=== PATIENT | male | born 1980 | race African-American/Black ===

== ENCOUNTER 2018-03-28 21:50 | Emergency (ER) | payer MEDICAID ==
[~2018-03-28] VITALS: Ht 175.3 cm; Wt 74.0 kg
[2018-03-28] MEDS ORDERED: TETANUS, DIPHTHERIA, PERTUSSIS VAC/PF 0.5ML (>7YR OLD) IM ONE (23:15)
[2018-03-28] MEDS ORDERED: BACITRACIN ZINC OINT UDPKT TOP ONE (23:15)
[2018-03-28] MEDS ORDERED: LIDOCAINE HCL 1% 20ML VIAL (Pyxis) INJ INFIL ONE (23:15)
[2018-03-28] MEDS ORDERED: LIDOCAINE HCL/PF 1% 10 MG/ML 5ML VIAL IJ NR (23:45)
[2018-03-29 03:33] VITALS: BP 117/65
== END 2018-03-29 03:35 | disposition home or self-care (01) ==
LOC: ER 21:50
DX: S01.81XA Laceration without foreign body of other part of head, initial encounter (principal); M79.602 Pain in left arm; F17.200 Nicotine dependence, unspecified, uncomplicated; Y08.89XA Assault by other specified means, initial encounter; Y93.89 Activity, other specified; Y92.410 Unspecified street and highway as the place of occurrence of the external cause; Y99.8 Other external cause status
CPT/HCPCS: 12013; 73060; 73090; 90471; 90715; 99284; A4217; J3490; Z7610

== ENCOUNTER 2018-10-20 14:45 | Emergency (ER) | payer MEDICAID, OTHER ==
[~2018-10-20] VITALS: Ht 175.3 cm; Wt 70.0 kg
[2018-10-20] MEDS ORDERED: SODIUM CHLORIDE 0.9% 1,000 ML IV ONE ×2 (18:30→22:45)
[2018-10-20] MEDS ORDERED: KETOROLAC 15MG/ML VIAL IV ONE (18:30)
[2018-10-20] MEDS ORDERED: CEFTRIAXONE SODIUM 250 MG/VIAL IM ONE (18:45)
[2018-10-20] MEDS ORDERED: STERILE WATER FOR INJECTION 10ML VIAL ONE (19:01)
[2018-10-20 19:39] LABS: BASOPHILS % 0.3 % (0.0-2.0); EOSINOPHILS % 0.6 % (0.0-5.0); HEMATOCRIT. 46.9 % (42.0-52.0); HEMOGLOBIN. 16.2 g/dL (14.0-18.0); LYMPHOCYTES % 12.6 % (20.0-50.0); MEAN CORPUSCULAR HEMOGLOBIN 30.9 pg (28.0-32.0); MEAN CORPUSCULAR VOLUME 89.7 fL (80.0-94.0); MEAN PLATELET VOLUME 7.2 fl (7.4-10.4); MONOCYTES % 7.5 % (2.0-8.0); PLATELET 261 x1000/uL (130-400); RED BLOOD CELL COUNT 5.23 mill/uL (4.7-6.1); RED CELL DISTRIBUTION WIDTH 12.6 % (11.6-14.6)
[2018-10-20 19:48] LABS: CHLORIDE 101 mEq/L (98-107)
[2018-10-20 19:52] LABS: ETHANOL BLOOD < 10 mg/dL
[2018-10-20 23:31] LABS: CLARITY URINE CLEAR (CLEAR); COLOR URINE DARK YELLOW (YELLOW); KETONES URINE TRACE (NEGATIVE); LEUKOCYTE ESTERASE URINE 2+ (NEGATIVE); NITRITE URINE NEGATIVE (NEGATIVE); OCCULT BLOOD URINE NEGATIVE (NEGATIVE); PH URINE 5.5 (4.5-8.0); PROTEIN URINE TRACE (NEGATIVE); SPECIFIC GRAVITY URINE 1.032 (1.005-1.030)
[2018-10-21 00:52] VITALS: BP 125/87
[2018-10-21 01:17] LABS: *AMPHETAMINES SCREEN URINE PRESUMTIVE POSITIVE (NEGATIVE); *BARBITURATES SCREEN URINE NEGATIVE (NEGATIVE); *BENZODIAZEPINES SCREEN URINE NEGATIVE (NEGATIVE); *COCAINE SCREEN URINE NEGATIVE (NEGATIVE)
[2018-10-21 01:18] LABS: CANNABINOID URINE SCREEN NEGATIVE (NEGATIVE); METHADONE URINE SCREEN NEGATIVE (NEGATIVE); OPIATES URINE SCREEN NEGATIVE (NEGATIVE); PHENCYCLIDINE URINE SCREEN NEGATIVE (NEGATIVE)
== END 2018-10-21 00:55 | disposition home or self-care (01) ==
LOC: ER 14:45
DX: A64 Unspecified sexually transmitted disease (principal); L73.9 Follicular disorder, unspecified; F15.10 Other stimulant abuse, uncomplicated; L29.9 Pruritus, unspecified; F19.10 Other psychoactive substance abuse, uncomplicated; M25.552 Pain in left hip; F17.200 Nicotine dependence, unspecified, uncomplicated
CPT/HCPCS: 36415; 71045; 73502; 80053; 80305; 81003; 85025; 96372; 96374; 99284; A4216; G0482; J0696; J1885; J7030

== ENCOUNTER 2019-12-19 12:07 | Emergency (ER) | payer SELFPAY ==
[~2019-12-19] VITALS: Ht 170.2 cm; Wt 73.0 kg
[2019-12-19 14:06] LABS: BASOPHILS % 1.1 % (0.0-2.0); EOSINOPHILS % 1.9 % (0.0-5.0); HEMATOCRIT. 42.7 % (42.0-52.0); HEMOGLOBIN. 14.5 g/dL (14.0-18.0); LYMPHOCYTES % 26.3 % (20.0-50.0); MEAN CORPUSCULAR HEMOGLOBIN 31.1 pg (28.0-32.0); MEAN CORPUSCULAR VOLUME 91.3 fL (80.0-94.0); MEAN PLATELET VOLUME 7.5 fl (7.4-10.4); MONOCYTES % 7.9 % (2.0-8.0); NEUTROPHILS % 62.8 % (40.0-76.0); PLATELET 217 x1000/uL (130-400); RED BLOOD CELL COUNT 4.68 mill/uL (4.7-6.1); RED CELL DISTRIBUTION WIDTH 13.3 % (11.6-14.6)
[2019-12-19 14:15] LABS: CHLORIDE 110 mEq/L (98-107)
[2019-12-19 14:19] LABS: ETHANOL BLOOD < 10 mg/dL
[2019-12-19 14:20] LABS: *AMPHETAMINES SCREEN URINE PRESUMTIVE POSITIVE (NEGATIVE); *BARBITURATES SCREEN URINE NEGATIVE (NEGATIVE); *BENZODIAZEPINES SCREEN URINE PRESUMTIVE POSITIVE (NEGATIVE); *COCAINE SCREEN URINE NEGATIVE (NEGATIVE)
[2019-12-19 14:21] LABS: CANNABINOID URINE SCREEN NEGATIVE (NEGATIVE); METHADONE URINE SCREEN NEGATIVE (NEGATIVE); OPIATES URINE SCREEN NEGATIVE (NEGATIVE); PHENCYCLIDINE URINE SCREEN NEGATIVE (NEGATIVE)
[2019-12-19] MEDS ORDERED: FUROSEMIDE 40MG/4ML VIAL IV ONE (15:15)
[2019-12-19] MEDS ORDERED: NITROGLYCERIN 0.4MG TABLET SL SL PRN (15:15)
[2019-12-19] MEDS ORDERED: ASPIRIN 81MG TABLET PO ONE (15:15)
[2019-12-19 16:47] VITALS: BP 125/88
== END 2019-12-19 16:49 | disposition home or self-care (01) ==
LOC: ER 12:07
DX: R07.9 Chest pain, unspecified (principal); I20.0 Unstable angina; I11.0 Hypertensive heart disease with heart failure; I50.9 Heart failure, unspecified; F32.9 Major depressive disorder, single episode, unspecified
CPT/HCPCS: 36415; 71045; 80053; 80305; 80320; 83880; 84484; 85025; 93005; 96374; 99285; J1940; Z7610; G0480

== ENCOUNTER 2021-08-14 10:23 | Inpatient (IN) | payer MEDICAID ==
[~2021-08-14] VITALS: Ht 175.3 cm; Wt 73.1 kg
[2021-08-14 11:01] LABS: BASOPHILS % 1.2 % (0.0-2.0); HEMATOCRIT. 41.7 % (42.0-52.0); HEMOGLOBIN. 14.3 g/dL (14.0-18.0); LYMPHOCYTES % 23.7 % (20.0-50.0); MEAN CORPUSCULAR HEMOGLOBIN 30.7 pg (28.0-32.0); MEAN CORPUSCULAR VOLUME 89.9 fL (80.0-94.0); MEAN PLATELET VOLUME 7.4 fl (7.4-10.4); MONOCYTES % 5.8 % (2.0-8.0); NEUTROPHILS % 67.3 % (40.0-76.0); PLATELET 236 x1000/uL (130-400); RED BLOOD CELL COUNT 4.64 mill/uL (4.7-6.1); RED CELL DISTRIBUTION WIDTH 15.8 % (11.6-14.6)
[2021-08-14 11:09] LABS: CHLORIDE 104 mEq/L (98-107)
[2021-08-14] MEDS ORDERED: IOHEXOL-350 100 ML BOTTLE ONE (12:42)
[2021-08-14 18:49] VITALS: BP 146/100
[2021-08-14 20:00] VITALS: BP 133/95
[2021-08-14] MEDS ORDERED: RIVAROXABAN 20 MG TABLET PO SCH (20:00)
[2021-08-14] MEDS: FUROSEMIDE 40MG/4ML VIAL IVP SCH (20:58)
[2021-08-14] MEDS: CARVEDILOL 3.125 MG TABLET PO SCH (20:59)
[2021-08-14] MEDS ORDERED: POTA25TA8 PO (23:57)
[2021-08-14] MEDS ORDERED: FURO-151 PO (23:57)
[2021-08-14] MEDS ORDERED: RIVA20TA PO (23:57)
[2021-08-14] MEDS ORDERED: LOSA25TA26 PO (23:57)
[2021-08-15] VITALS: BP 113/72
[2021-08-15 04:00] VITALS: BP 112/88
[2021-08-15 08:00] VITALS: BP 108/84
[2021-08-15] MEDS ORDERED: ONDANSETRON HCL 4MG/2ML INJ IV PRN (09:00)
[2021-08-15] MEDS ORDERED: ACETAMINOPHEN 325MG TABLET PO PRN (09:00)
[2021-08-15] MEDS: LOSARTAN POTASSIUM 50 MG TABLET PO SCH (09:50)
[2021-08-15] MEDS: FUROSEMIDE 40MG/4ML VIAL IVP SCH ×2 (09:50→21:33)
[2021-08-15] MEDS: CARVEDILOL 3.125 MG TABLET PO SCH ×2 (09:50→21:34)
[2021-08-15 12:02] VITALS: BP 123/90
[2021-08-15] MEDS ORDERED: CLONIDINE 0.1MG TABLET PO PRN (12:30)
[2021-08-15 16:00] VITALS: BP 116/84
[2021-08-15] MEDS: ENOXAPARIN 80MG/0.8ML SYR SUBCUT SCH (18:24)
[2021-08-15 20:00] VITALS: BP 116/85
[2021-08-15 20:07] LABS: *AMPHETAMINES SCREEN URINE PRESUMTIVE POSITIVE (NEGATIVE); *BARBITURATES SCREEN URINE NEGATIVE (NEGATIVE); *BENZODIAZEPINES SCREEN URINE NEGATIVE (NEGATIVE); *COCAINE SCREEN URINE NEGATIVE (NEGATIVE); METHADONE URINE SCREEN NEGATIVE (NEGATIVE)
[2021-08-15 20:08] LABS: CANNABINOID URINE SCREEN NEGATIVE (NEGATIVE); OPIATES URINE SCREEN NEGATIVE (NEGATIVE); PHENCYCLIDINE URINE SCREEN NEGATIVE (NEGATIVE)
[2021-08-16] VITALS: BP 105/70
[2021-08-16 04:00] VITALS: BP 116/83
[2021-08-16] MEDS: ENOXAPARIN 80MG/0.8ML SYR SUBCUT SCH ×2 (05:27→17:28)
[2021-08-16 06:03] LABS: BASOPHILS % 0.7 % (0.0-2.0); EOSINOPHILS % 1.7 % (0.0-5.0); HEMATOCRIT. 42.7 % (42.0-52.0); HEMOGLOBIN. 14.1 g/dL (14.0-18.0); LYMPHOCYTES % 26.9 % (20.0-50.0); MEAN CORPUSCULAR HEMOGLOBIN 29.6 pg (28.0-32.0); MEAN PLATELET VOLUME 8.2 fl (7.4-10.4); NEUTROPHILS % 63.7 % (40.0-76.0); PLATELET 232 x1000/uL (130-400); RED BLOOD CELL COUNT 4.75 mill/uL (4.7-6.1); RED CELL DISTRIBUTION WIDTH 15.9 % (11.6-14.6)
[2021-08-16 06:27] LABS: CHLORIDE 103 mEq/L (98-107)
[2021-08-16 06:34] LABS: CREATINE KINASE MB FRACTION 1.8 ng/mL (0.5-3.6); LDL CHOLESTEROL 55 mg/dL (5-100)
[2021-08-16 06:35] LABS: CREATINE KINASE 98 IU/L (39-308); HDL CHOLESTEROL 27 mg/dL (40-59)
[2021-08-16 08:00] VITALS: BP 126/90
[2021-08-16] MEDS: CARVEDILOL 3.125 MG TABLET PO SCH ×2 (09:59→21:30)
[2021-08-16] MEDS: FUROSEMIDE 40MG/4ML VIAL IVP SCH ×2 (09:59→21:30)
[2021-08-16] MEDS: LOSARTAN POTASSIUM 50 MG TABLET PO SCH (09:59)
[2021-08-16 12:00] VITALS: BP 110/75
[2021-08-16 16:00] VITALS: BP 105/81
[2021-08-16 20:00] VITALS: BP 120/77
[2021-08-17 00:01] VITALS: BP 103/74
[2021-08-17 04:00] VITALS: BP 103/79
[2021-08-17] MEDS: ENOXAPARIN 80MG/0.8ML SYR SUBCUT SCH ×2 (04:31→16:58)
[2021-08-17 06:07] LABS: INR 1.3
[2021-08-17 06:11] LABS: BASOPHILS % 0.9 % (0.0-2.0); EOSINOPHILS % 2.3 % (0.0-5.0); HEMATOCRIT. 41.1 % (42.0-52.0); HEMOGLOBIN. 13.6 g/dL (14.0-18.0); LYMPHOCYTES % 29.6 % (20.0-50.0); MEAN CORPUSCULAR HEMOGLOBIN 29.4 pg (28.0-32.0); MEAN PLATELET VOLUME 8.2 fl (7.4-10.4); MONOCYTES % 6.4 % (2.0-8.0); NEUTROPHILS % 60.8 % (40.0-76.0); PLATELET 234 x1000/uL (130-400); RED BLOOD CELL COUNT 4.62 mill/uL (4.7-6.1); RED CELL DISTRIBUTION WIDTH 15.5 % (11.6-14.6)
[2021-08-17 08:00] VITALS: BP 125/88
[2021-08-17] MEDS: LOSARTAN POTASSIUM 50 MG TABLET PO SCH (08:53)
[2021-08-17] MEDS: FUROSEMIDE 40MG/4ML VIAL IVP SCH ×2 (08:53→21:16)
[2021-08-17] MEDS: CARVEDILOL 3.125 MG TABLET PO SCH ×2 (08:53→21:17)
[2021-08-17 09:24] LABS: CHLORIDE 104 mEq/L (98-107)
[2021-08-17 12:00] VITALS: BP 113/80
[2021-08-17] MEDS: IPRATROPIUM BROMIDE (0.02%) 0.5MG/2.5ML NEB HHN PRN ×2 (12:28→22:40)
[2021-08-17] MEDS ORDERED: KETOROLAC 15MG/ML VIAL IV PRN (13:15)
[2021-08-17] MEDS: BENZONATATE 100MG CAPSULE PO PRN (13:21)
[2021-08-17] MEDS ORDERED: COR3 PO (14:08)
[2021-08-17] MEDS ORDERED: LOSA50TA3 PO (14:08)
[2021-08-17] MEDS ORDERED: FURO-151 PO (14:08)
[2021-08-17 16:00] VITALS: BP 100/68
[2021-08-17 20:00] VITALS: BP 115/80
[2021-08-18] VITALS: BP 96/62
[2021-08-18 04:00] VITALS: BP 102/64
[2021-08-18] MEDS: ENOXAPARIN 80MG/0.8ML SYR SUBCUT SCH (04:25)
[2021-08-18] MEDS: BENZONATATE 100MG CAPSULE PO PRN (05:46)
[2021-08-18 08:00] VITALS: BP 104/71
[2021-08-18] MEDS: CARVEDILOL 3.125 MG TABLET PO SCH (08:57)
[2021-08-18] MEDS: FUROSEMIDE 40MG/4ML VIAL IVP SCH (08:58)
[2021-08-18] MEDS: LOSARTAN POTASSIUM 50 MG TABLET PO SCH (08:58)
[2021-08-18 12:00] VITALS: BP 113/84
[2021-08-18 16:00] VITALS: BP 119/84
[2021-08-18 16:04] LABS: BASOPHILS % 0.7 % (0.0-2.0); EOSINOPHILS % 4.2 % (0.0-5.0); HEMATOCRIT. 41.7 % (42.0-52.0); HEMOGLOBIN. 13.6 g/dL (14.0-18.0); LYMPHOCYTES % 27.2 % (20.0-50.0); MEAN CORPUSCULAR HEMOGLOBIN 29.5 pg (28.0-32.0); MEAN CORPUSCULAR VOLUME 90.4 fL (80.0-94.0); MEAN PLATELET VOLUME 8.1 fl (7.4-10.4); MONOCYTES % 7.4 % (2.0-8.0); NEUTROPHILS % 60.5 % (40.0-76.0); PLATELET 255 x1000/uL (130-400); RED BLOOD CELL COUNT 4.61 mill/uL (4.7-6.1); RED CELL DISTRIBUTION WIDTH 15.8 % (11.6-14.6)
[2021-08-18 16:28] LABS: CHLORIDE 103 mEq/L (98-107)
[2021-08-18 16:37] LABS: T4 FREE 1.05 ng/dL (0.76-1.46)
[2021-08-18] MEDS: METHYLPREDNISOLONE SOD SUCC 40 MG/ML VIAL IV SCH (19:35)
[2021-08-18 20:00] VITALS: BP 102/83
[2021-08-18] MEDS: IPRATROPIUM/ALBUTEROL 0.5-3(2.5)MG/3ML NEB HHN SCH (20:28)
[2021-08-19] VITALS: BP 116/87
[2021-08-19] MEDS: IPRATROPIUM/ALBUTEROL 0.5-3(2.5)MG/3ML NEB HHN SCH ×5 (00:23→15:54)
[2021-08-19] MEDS: METHYLPREDNISOLONE SOD SUCC 40 MG/ML VIAL IV SCH ×2 (02:23→10:20)
[2021-08-19 04:00] VITALS: BP 112/88
[2021-08-19 08:00] VITALS: BP 119/86
[2021-08-19] MEDS ORDERED: FUROSEMIDE 40MG TABLET PO SCH (09:00)
[2021-08-19] MEDS: LOSARTAN POTASSIUM 50 MG TABLET PO SCH (10:20)
[2021-08-19 12:00] VITALS: BP 125/74
[2021-08-19 16:00] VITALS: BP 115/77
[2021-08-19 16:48] VITALS: BP 119/86
[2021-08-19] MEDS ORDERED: *PATIENT'S OWN MEDICATION STORAGE XX SCH (18:30)
== END 2021-08-19 18:55 | disposition home or self-care (01) | DRG 812 ==
LOC: ER 10:32 → 8WST 12:18 → EDBEDREQ 12:26 → EDBEDREQTM 12:26 → ENRESERV 15:59
PROVIDERS: ADMIT Internal Medicine; ATTEND Internal Medicine
DX: T43.621A Poisoning by amphetamines, accidental (unintentional), initial encounter (principal); J96.01 Acute respiratory failure with hypoxia; I50.23 Acute on chronic systolic (congestive) heart failure; I44.2 Atrioventricular block, complete; I42.9 Cardiomyopathy, unspecified; F15.10 Other stimulant abuse, uncomplicated; R73.9 Hyperglycemia, unspecified; R00.0 Tachycardia, unspecified; F17.210 Nicotine dependence, cigarettes, uncomplicated; Z20.822 Contact with and (suspected) exposure to COVID-19; J68.0 Bronchitis and pneumonitis due to chemicals, gases, fumes and vapors; I44.1 Atrioventricular block, second degree; Z79.01 Long term (current) use of anticoagulants; Z86.718 Personal history of other venous thrombosis and embolism; Y92.89 Other specified places as the place of occurrence of the external cause; Z71.51 Drug abuse counseling and surveillance of drug abuser
CPT/HCPCS: 36415; 71045; 71275; 76604; 80048; 80053; 80061; 80305; 82550; 82553; 83735; 83880; 84439; 84443; 84484; 85025; 85379; 87426; 93005; 93306; 93970; 94640; 99285; J1650; J1885; J1940; J2920; Q9967

== ENCOUNTER 2021-10-08 02:29 | Inpatient (IN) | payer MEDICAID ==
[~2021-10-08] VITALS: Ht 175.3 cm; Wt 74.4 kg
[~2021-10-08 02:29] MED LIST: COR3 PO; FURO-151 PO; LOSA25TA26 PO; LOSA50TA3 PO; POTA25TA8 PO; RIVA20TA PO
[2021-10-08] MEDS ORDERED: NITROGLYCERIN 0.4MG TABLET SL SL PRN (03:00)
[2021-10-08] MEDS ORDERED: ASPIRIN 81MG TABLET PO ONE (03:00)
[2021-10-08 03:23] LABS: EOSINOPHILS % 3.4 % (0.0-5.0); HEMATOCRIT. 41.1 % (42.0-52.0); HEMOGLOBIN. 13.3 g/dL (14.0-18.0); LYMPHOCYTES % 28.5 % (20.0-50.0); MEAN CORPUSCULAR HEMOGLOBIN 28.3 pg (28.0-32.0); MEAN CORPUSCULAR VOLUME 87.6 fL (80.0-94.0); MEAN PLATELET VOLUME 7.7 fl (7.4-10.4); MONOCYTES % 7.6 % (2.0-8.0); NEUTROPHILS % 59.5 % (40.0-76.0); PLATELET 203 x1000/uL (130-400); RED BLOOD CELL COUNT 4.69 mill/uL (4.7-6.1); RED CELL DISTRIBUTION WIDTH 16.2 % (11.6-14.6)
[2021-10-08 03:27] LABS: CHLORIDE 108 mEq/L (98-107)
[2021-10-08 03:32] LABS: ETHANOL BLOOD < 10 mg/dL
[2021-10-08 03:34] LABS: D-DIMER 0.85 mg/L FEU (<0.50); INR 1.1; PARTIAL THROMBOPLASTIN TIME 26.8 sec (23.4-31.0); PROTHROMBIN TIME 12.1 sec (9.6-11.0)
[2021-10-08] MEDS ORDERED: ENOXAPARIN 80MG/0.8ML SYR SUBCUT ONE (04:15)
[2021-10-08] MEDS ORDERED: IOHEXOL-350 100 ML BOTTLE ONE (05:28)
[2021-10-08] MEDS ORDERED: FUROSEMIDE 40MG/4ML VIAL IVP ONE (06:30)
[2021-10-08] MEDS ORDERED: DOCUSATE SODIUM 100MG CAPSULE PO PRN (07:30)
[2021-10-08] MEDS ORDERED: CLONIDINE 0.1MG TABLET PO PRN (07:30)
[2021-10-08] MEDS ORDERED: MAGNESIUM/ALUMINUM HYDROXIDE/SIMETHICONE 30ML UDC PO PRN (07:30)
[2021-10-08] MEDS ORDERED: ACETAMINOPHEN 325MG TABLET PO PRN ×2 (07:30)
[2021-10-08] MEDS ORDERED: ONDANSETRON HCL 4MG/2ML INJ IV PRN (07:30)
[2021-10-08] MEDS: FUROSEMIDE 40MG/4ML VIAL IVP SCH ×2 (08:00→17:43)
[2021-10-08] MEDS ORDERED: ENOXAPARIN 40MG/0.4ML SYR SUBCUT SCH (08:00)
[2021-10-08 08:28] LABS: *AMPHETAMINES SCREEN URINE PRESUMTIVE POSITIVE (NEGATIVE); *BARBITURATES SCREEN URINE NEGATIVE (NEGATIVE); *BENZODIAZEPINES SCREEN URINE NEGATIVE (NEGATIVE); *COCAINE SCREEN URINE NEGATIVE (NEGATIVE)
[2021-10-08 08:29] LABS: CANNABINOID URINE SCREEN NEGATIVE (NEGATIVE); METHADONE URINE SCREEN NEGATIVE (NEGATIVE); OPIATES URINE SCREEN NEGATIVE (NEGATIVE); PHENCYCLIDINE URINE SCREEN NEGATIVE (NEGATIVE)
[2021-10-08] MEDS: IPRATROPIUM/ALBUTEROL 0.5-3(2.5)MG/3ML NEB NEB PRN (08:37)
[2021-10-08 09:23] LABS: TOTAL IRON BINDING CAPACITY 494 ug/dL (250-450)
[2021-10-08 09:30] VITALS: BP 139/98
[2021-10-08 09:37] LABS: FOLIC ACID (FOLATE) SERUM 16.7 ng/mL (>5.38)
[2021-10-08] MEDS: SPIRONOLACTONE 25MG TABLET PO SCH ×2 (10:05→20:24)
[2021-10-08] MEDS: FAMOTIDINE 20MG TABLET PO SCH ×2 (10:05→20:24)
[2021-10-08] MEDS: ASPIRIN 325MG EC TABLET PO SCH (10:06)
[2021-10-08 10:23] VITALS: BP 139/98
[2021-10-08 12:00] VITALS: BP 136/96
[2021-10-08 16:00] VITALS: BP 131/94
[2021-10-08 16:44] LABS: *AMPHETAMINES SCREEN URINE PRESUMTIVE POSITIVE (NEGATIVE); *BARBITURATES SCREEN URINE NEGATIVE (NEGATIVE); *BENZODIAZEPINES SCREEN URINE NEGATIVE (NEGATIVE); *COCAINE SCREEN URINE NEGATIVE (NEGATIVE)
[2021-10-08 16:45] LABS: CANNABINOID URINE SCREEN NEGATIVE (NEGATIVE); METHADONE URINE SCREEN NEGATIVE (NEGATIVE); OPIATES URINE SCREEN NEGATIVE (NEGATIVE); PHENCYCLIDINE URINE SCREEN NEGATIVE (NEGATIVE)
[2021-10-08 17:36] LABS: CREATINE KINASE 117 IU/L (39-308)
[2021-10-08 17:38] LABS: CREATINE KINASE MB FRACTION 5.4 ng/mL (0.5-3.6)
[2021-10-08] MEDS: GUAIFENESIN 200MG/10ML SUGAR FREE UDC PO PRN (17:48)
[2021-10-08 20:00] VITALS: BP 153/70
[2021-10-08] MEDS: ZOLPIDEM TARTRATE 5MG TABLET PO PRN (20:24)
[2021-10-09] VITALS: BP 134/96
[2021-10-09 00:17] LABS: CREATINE KINASE 106 IU/L (39-308)
[2021-10-09 00:18] LABS: CREATINE KINASE MB FRACTION 4.3 ng/mL (0.5-3.6)
[2021-10-09] MEDS: GUAIFENESIN 200MG/10ML SUGAR FREE UDC PO PRN ×2 (01:44→23:44)
[2021-10-09] MEDS: KETOROLAC 15MG/ML VIAL IV PRN ×3 (01:47→20:09)
[2021-10-09 04:00] VITALS: BP 124/93
[2021-10-09] MEDS: FUROSEMIDE 40MG/4ML VIAL IVP SCH ×2 (05:28→17:49)
[2021-10-09 06:17] LABS: CHLORIDE 106 mEq/L (98-107)
[2021-10-09 06:18] LABS: BASOPHILS % 1.1 % (0.0-2.0); EOSINOPHILS % 2.1 % (0.0-5.0); HEMATOCRIT. 38.4 % (42.0-52.0); HEMOGLOBIN. 12.4 g/dL (14.0-18.0); LYMPHOCYTES % 25.7 % (20.0-50.0); MEAN CORPUSCULAR HEMOGLOBIN 27.4 pg (28.0-32.0); MEAN CORPUSCULAR VOLUME 84.9 fL (80.0-94.0); MEAN PLATELET VOLUME 7.8 fl (7.4-10.4); MONOCYTES % 6.1 % (2.0-8.0); PLATELET 206 x1000/uL (130-400); RED BLOOD CELL COUNT 4.52 mill/uL (4.7-6.1); RED CELL DISTRIBUTION WIDTH 16.1 % (11.6-14.6)
[2021-10-09 08:00] VITALS: BP 141/76
[2021-10-09] MEDS: ASPIRIN 325MG EC TABLET PO SCH (08:43)
[2021-10-09] MEDS: FAMOTIDINE 20MG TABLET PO SCH ×2 (08:43→20:09)
[2021-10-09] MEDS: ENOXAPARIN 40MG/0.4ML SYR SUBCUT SCH (08:43)
[2021-10-09] MEDS: SPIRONOLACTONE 25MG TABLET PO SCH ×2 (08:59→20:09)
[2021-10-09 12:00] VITALS: BP 126/72
[2021-10-09] MEDS: DILTIAZEM HCL 60MG TABLET PO SCH ×3 (12:00→23:44)
[2021-10-09 16:00] VITALS: BP 135/78
[2021-10-09] MEDS: NITROGLYCERIN 0.4MG TABLET SL SL PRN ×2 (18:03→19:35)
[2021-10-09 19:35] VITALS: BP 145/84
[2021-10-09] MEDS: ZOLPIDEM TARTRATE 5MG TABLET PO PRN (23:44)
[2021-10-09] MEDS: IPRATROPIUM/ALBUTEROL 0.5-3(2.5)MG/3ML NEB NEB PRN (23:58)
[2021-10-10] VITALS: BP 113/80
[2021-10-10 04:00] VITALS: BP 124/88
[2021-10-10] MEDS: FUROSEMIDE 40MG/4ML VIAL IVP SCH ×2 (05:01→17:34)
[2021-10-10] MEDS: DILTIAZEM HCL 60MG TABLET PO SCH ×3 (05:02→17:34)
[2021-10-10 08:29] VITALS: BP 112/82
[2021-10-10] MEDS: FAMOTIDINE 20MG TABLET PO SCH ×2 (08:30→21:51)
[2021-10-10] MEDS: SPIRONOLACTONE 25MG TABLET PO SCH ×2 (08:30→21:51)
[2021-10-10] MEDS: ASPIRIN 325MG EC TABLET PO SCH (08:30)
[2021-10-10] MEDS: ENOXAPARIN 40MG/0.4ML SYR SUBCUT SCH (08:31)
[2021-10-10 09:13] LABS: *AMPHETAMINES SCREEN URINE PRESUMTIVE POSITIVE (NEGATIVE)
[2021-10-10 09:16] LABS: *BARBITURATES SCREEN URINE NEGATIVE (NEGATIVE)
[2021-10-10 09:17] LABS: *BENZODIAZEPINES SCREEN URINE NEGATIVE (NEGATIVE); *COCAINE SCREEN URINE NEGATIVE (NEGATIVE); METHADONE URINE SCREEN NEGATIVE (NEGATIVE); OPIATES URINE SCREEN NEGATIVE (NEGATIVE); PHENCYCLIDINE URINE SCREEN NEGATIVE (NEGATIVE)
[2021-10-10 09:18] LABS: CANNABINOID URINE SCREEN NEGATIVE (NEGATIVE)
[2021-10-10 11:40] VITALS: BP 110/78
[2021-10-10 16:09] VITALS: BP 120/86
[2021-10-10 20:00] VITALS: BP 120/86
[2021-10-11] VITALS (7 sets, daily range): BP systolic 116–134; BP diastolic 79–92
[2021-10-11] MEDS: DILTIAZEM HCL 60MG TABLET PO SCH ×5 (00:46→23:36)
[2021-10-11] MEDS: FUROSEMIDE 40MG/4ML VIAL IVP SCH ×2 (06:04→17:01)
[2021-10-11] MEDS: ENOXAPARIN 40MG/0.4ML SYR SUBCUT SCH (08:42)
[2021-10-11] MEDS: FAMOTIDINE 20MG TABLET PO SCH ×2 (08:43→21:04)
[2021-10-11] MEDS: ASPIRIN 325MG EC TABLET PO SCH (08:43)
[2021-10-11] MEDS: SPIRONOLACTONE 25MG TABLET PO SCH ×2 (08:45→21:04)
[2021-10-11] MEDS: IPRATROPIUM/ALBUTEROL 0.5-3(2.5)MG/3ML NEB NEB PRN (20:25)
[2021-10-12] MEDS: GUAIFENESIN 200MG/10ML SUGAR FREE UDC PO PRN (02:40)
[2021-10-12 04:00] VITALS: BP 121/86
[2021-10-12] MEDS: FUROSEMIDE 40MG/4ML VIAL IVP SCH (06:40)
[2021-10-12] MEDS: DILTIAZEM HCL 60MG TABLET PO SCH ×2 (06:40→12:51)
[2021-10-12 08:00] VITALS: BP 113/86
[2021-10-12] MEDS: SPIRONOLACTONE 25MG TABLET PO SCH (08:21)
[2021-10-12] MEDS: ASPIRIN 325MG EC TABLET PO SCH (08:21)
[2021-10-12] MEDS: FAMOTIDINE 20MG TABLET PO SCH (08:21)
[2021-10-12] MEDS: ENOXAPARIN 40MG/0.4ML SYR SUBCUT SCH (08:22)
[2021-10-12] MEDS: IPRATROPIUM/ALBUTEROL 0.5-3(2.5)MG/3ML NEB NEB PRN (09:32)
[2021-10-12 12:00] VITALS: BP 122/90
[2021-10-12 17:20] VITALS: BP 127/98
[2021-10-12] MEDS ORDERED: FURO20TA4 PO (17:41)
== END 2021-10-12 18:08 | disposition home or self-care (01) | DRG 194 ==
LOC: ER 02:29 → 6WST 05:15 → ENRESERV 08:39
PROVIDERS: ADMIT Internal Medicine; ATTEND Internal Medicine
DX: I11.0 Hypertensive heart disease with heart failure (principal); D63.8 Anemia in other chronic diseases classified elsewhere; Z79.01 Long term (current) use of anticoagulants; I50.43 Acute on chronic combined systolic (congestive) and diastolic (congestive) heart failure; Z20.822 Contact with and (suspected) exposure to COVID-19; F15.10 Other stimulant abuse, uncomplicated; Z82.49 Family history of ischemic heart disease and other diseases of the circulatory system; Z79.899 Other long term (current) drug therapy; Z71.51 Drug abuse counseling and surveillance of drug abuser; M94.0 Chondrocostal junction syndrome [Tietze]
CPT/HCPCS: 36415; 71045; 71275; 80053; 80305; 80320; 82550; 82553; 82607; 82746; 83540; 83550; 83735; 83880; 84100; 84484; 85025; 85379; 87426; 93005; 93970; 94640; 99285; J1650; J1885; J1940; Q9967; G0480

== ENCOUNTER 2021-10-22 20:29 | Emergency (ER) | payer MEDICAID ==
[~2021-10-22] VITALS: Ht 177.8 cm; Wt 68.0 kg
[~2021-10-22 20:29] MED LIST changes: +FURO20TA4 PO; -LOSA25TA26 PO
[2021-10-22 20:38] VITALS: BP 106/60
== END 2021-10-22 23:41 | disposition left against medical advice (07) ==
LOC: ER 20:29
DX: Z53.21 Procedure and treatment not carried out due to patient leaving prior to being seen by health care provider (principal); I49.9 Cardiac arrhythmia, unspecified
CPT/HCPCS: 93005

== ENCOUNTER 2022-10-23 13:27 | Inpatient (IN) | payer MEDICAID ==
[~2022-10-23] VITALS: Ht 175.3 cm; Wt 77.3 kg
[2022-10-23] MEDS ORDERED: NITROGLYCERIN OINT 1GM/INCH UDPKT TD ONE (16:30)
[2022-10-23] MEDS ORDERED: FUROSEMIDE 40MG/4ML VIAL IV ONE (16:30)
[2022-10-23] MEDS ORDERED: ASPIRIN 81MG TABLET PO ONE (16:30)
[2022-10-23] MEDS ORDERED: NITROGLYCERIN OINT 1GM/INCH UDPKT TD NR (18:45)
[2022-10-23] MEDS ORDERED: FUROSEMIDE 40MG/4ML VIAL IV NR (18:45)
[2022-10-23] MEDS ORDERED: ASPIRIN 81MG TABLET PO NR (18:45)
[2022-10-23 18:48] LABS: BASOPHILS % 0.6 % (0.0-2.0); EOSINOPHILS % 0.2 % (0.0-5.0); HEMATOCRIT. 41.1 % (42.0-52.0); HEMOGLOBIN. 13.6 g/dL (14.0-18.0); LYMPHOCYTES % 15.9 % (20.0-50.0); MEAN CORPUSCULAR HEMOGLOBIN 30.1 pg (28.0-32.0); MEAN CORPUSCULAR VOLUME 90.8 fL (80.0-94.0); MEAN PLATELET VOLUME 7.2 fl (7.4-10.4); MONOCYTES % 7.9 % (2.0-8.0); NEUTROPHILS % 75.4 % (40.0-76.0); PLATELET 214 x1000/uL (130-400); RED BLOOD CELL COUNT 4.52 mill/uL (4.7-6.1); RED CELL DISTRIBUTION WIDTH 14.8 % (11.6-14.6)
[2022-10-23 18:58] LABS: CHLORIDE 104 mEq/L (98-107)
[2022-10-23 19:00] LABS: D-DIMER 0.92 mg/L FEU (<0.50); INR 1.4; PARTIAL THROMBOPLASTIN TIME 30.7 sec (23.4-31.0); PROTHROMBIN TIME 14.6 sec (9.6-11.0)
[2022-10-23] MEDS ORDERED: ENOXAPARIN 80MG/0.8ML SYR SUBCUT ONE (19:30)
[2022-10-23] MEDS ORDERED: IOHEXOL-350 100 ML BOTTLE ONE (23:02)
[2022-10-24 01:28] VITALS: BP 137/89
[2022-10-24 04:00] VITALS: BP 127/86
[2022-10-24] MEDS ORDERED: HYDROCODONE/ACETAMINOPHEN 5/325MG TABLET PO PRN (06:00)
[2022-10-24] MEDS ORDERED: ACETAMINOPHEN 650MG/20.3ML UDC PO PRN (06:00)
[2022-10-24] MEDS ORDERED: CLONIDINE 0.1MG TABLET PO PRN (06:00)
[2022-10-24 08:00] VITALS: BP 114/79
[2022-10-24] MEDS ORDERED: ENOXAPARIN 40MG/0.4ML SYR SUBCUT SCH (09:00)
[2022-10-24 11:08] LABS: *AMPHETAMINES SCREEN URINE PRESUMTIVE POSITIVE (NEGATIVE); *BARBITURATES SCREEN URINE NEGATIVE (NEGATIVE); *BENZODIAZEPINES SCREEN URINE NEGATIVE (NEGATIVE); *COCAINE SCREEN URINE NEGATIVE (NEGATIVE); CANNABINOID URINE SCREEN NEGATIVE (NEGATIVE); METHADONE URINE SCREEN NEGATIVE (NEGATIVE); OPIATES URINE SCREEN NEGATIVE (NEGATIVE); PHENCYCLIDINE URINE SCREEN NEGATIVE (NEGATIVE)
[2022-10-24 12:00] VITALS: BP 111/71
[2022-10-24 12:03] LABS: BASOPHILS % 0.9 % (0.0-2.0); EOSINOPHILS % 0.1 % (0.0-5.0); HEMATOCRIT. 38.8 % (42.0-52.0); HEMOGLOBIN. 12.9 g/dL (14.0-18.0); LYMPHOCYTES % 19.2 % (20.0-50.0); MEAN CORPUSCULAR HEMOGLOBIN 30.1 pg (28.0-32.0); MEAN CORPUSCULAR VOLUME 90.5 fL (80.0-94.0); MEAN PLATELET VOLUME 7.3 fl (7.4-10.4); MONOCYTES % 10.3 % (2.0-8.0); NEUTROPHILS % 69.5 % (40.0-76.0); PLATELET 200 x1000/uL (130-400); RED BLOOD CELL COUNT 4.29 mill/uL (4.7-6.1)
[2022-10-24 12:13] LABS: CHLORIDE 102 mEq/L (98-107)
[2022-10-24 12:28] LABS: HDL CHOLESTEROL 28 mg/dL (40-59); LDL CHOLESTEROL 46 mg/dL (5-100)
[2022-10-24] MEDS: ASPIRIN 81MG EC TABLET PO SCH (12:35)
[2022-10-24] MEDS: FUROSEMIDE 40MG/4ML VIAL IVP SCH ×2 (12:35→17:22)
[2022-10-24 16:00] VITALS: BP 108/75
[2022-10-24 20:00] VITALS: BP 114/65
[2022-10-24] MEDS: ENOXAPARIN 40MG/0.4ML SYR SUBCUT SCH (21:06)
[2022-10-25] VITALS (7 sets, daily range): BP systolic 113–162; BP diastolic 82–102
[2022-10-25 07:22] LABS: BASOPHILS % 0.8 % (0.0-2.0); EOSINOPHILS % 1.1 % (0.0-5.0); HEMATOCRIT. 39.6 % (42.0-52.0); HEMOGLOBIN. 13.3 g/dL (14.0-18.0); LYMPHOCYTES % 23.9 % (20.0-50.0); MEAN CORPUSCULAR HEMOGLOBIN 30.2 pg (28.0-32.0); MEAN CORPUSCULAR VOLUME 89.9 fL (80.0-94.0); MEAN PLATELET VOLUME 7.4 fl (7.4-10.4); MONOCYTES % 8.6 % (2.0-8.0); NEUTROPHILS % 65.6 % (40.0-76.0); PLATELET 191 x1000/uL (130-400)
[2022-10-25] MEDS: FUROSEMIDE 40MG/4ML VIAL IVP SCH ×2 (07:23→17:19)
[2022-10-25 07:51] LABS: CHLORIDE 102 mEq/L (98-107)
[2022-10-25] MEDS: ASPIRIN 81MG EC TABLET PO SCH (08:57)
[2022-10-25] MEDS: AMLODIPINE 2.5MG TABLET PO SCH (08:58)
[2022-10-25] MEDS ORDERED: POTASSIUM CHLORIDE 20MEQ TABLET SR PO NR (11:15)
[2022-10-25 12:16] LABS: CLARITY URINE CLEAR (CLEAR); COLOR URINE DARK YELLOW (YELLOW)
[2022-10-25 12:17] LABS: KETONES URINE TRACE (NEGATIVE); LEUKOCYTE ESTERASE URINE NEGATIVE (NEGATIVE); NITRITE URINE NEGATIVE (NEGATIVE); OCCULT BLOOD URINE NEGATIVE (NEGATIVE); PROTEIN URINE TRACE (NEGATIVE); SPECIFIC GRAVITY URINE 1.033 (1.005-1.030)
[2022-10-25] MEDS: ENOXAPARIN 40MG/0.4ML SYR SUBCUT SCH (20:29)
[2022-10-26] VITALS: BP 115/85
[2022-10-26 04:00] VITALS: BP 117/81
[2022-10-26] MEDS: FUROSEMIDE 40MG/4ML VIAL IVP SCH ×2 (06:26→17:50)
[2022-10-26 06:55] LABS: BASOPHILS % 0.6 % (0.0-2.0); EOSINOPHILS % 1.8 % (0.0-5.0); HEMATOCRIT. 39.7 % (42.0-52.0); HEMOGLOBIN. 13.2 g/dL (14.0-18.0); LYMPHOCYTES % 23.6 % (20.0-50.0); MEAN CORPUSCULAR HEMOGLOBIN 30.2 pg (28.0-32.0); MEAN CORPUSCULAR VOLUME 90.5 fL (80.0-94.0); MEAN PLATELET VOLUME 7.3 fl (7.4-10.4); PLATELET 202 x1000/uL (130-400); RED BLOOD CELL COUNT 4.39 mill/uL (4.7-6.1)
[2022-10-26 08:00] VITALS: BP 121/87
[2022-10-26 08:11] LABS: CHLORIDE 103 mEq/L (98-107)
[2022-10-26] MEDS ORDERED: POTASSIUM CHLORIDE 20MEQ TABLET SR PO SCH (09:00)
[2022-10-26] MEDS: AMLODIPINE 2.5MG TABLET PO SCH (09:06)
[2022-10-26] MEDS: ASPIRIN 81MG EC TABLET PO SCH (09:06)
[2022-10-26 12:00] VITALS: BP 105/87
[2022-10-26] MEDS ORDERED: ASPI-1406 MT (12:45)
[2022-10-26] MEDS ORDERED: FURO-151 PO (12:45)
[2022-10-26 16:00] VITALS: BP 109/75
[2022-10-26 16:53] VITALS: BP 109/75
[2022-10-26] MEDS ORDERED: NALOXONE HCL 0.4MG/ML VIAL IV PRN (18:45)
== END 2022-10-26 21:03 | disposition home or self-care (01) | DRG 812 ==
LOC: ER 13:27 → 7WST 19:38 → EDBEDREQ 19:42 → EDBEDREQTM 19:42
PROVIDERS: ADMIT Internal Medicine; ATTEND Internal Medicine
DX: T43.651A Poisoning by methamphetamines accidental (unintentional), initial encounter (principal); J96.00 Acute respiratory failure, unspecified whether with hypoxia or hypercapnia; I50.23 Acute on chronic systolic (congestive) heart failure; E44.1 Mild protein-calorie malnutrition; I11.0 Hypertensive heart disease with heart failure; J68.0 Bronchitis and pneumonitis due to chemicals, gases, fumes and vapors; F15.10 Other stimulant abuse, uncomplicated; J91.8 Pleural effusion in other conditions classified elsewhere; E87.6 Hypokalemia; Z20.822 Contact with and (suspected) exposure to COVID-19; Z79.01 Long term (current) use of anticoagulants; Z79.899 Other long term (current) drug therapy; Z87.891 Personal history of nicotine dependence; Z91.14 Patient's other noncompliance with medication regimen; Z86.718 Personal history of other venous thrombosis and embolism; Z82.49 Family history of ischemic heart disease and other diseases of the circulatory system; Y92.89 Other specified places as the place of occurrence of the external cause
CPT/HCPCS: 36415; 71045; 71275; 73610; 80048; 80053; 80061; 80305; 81003; 83735; 83880; 84443; 84484; 85025; 85379; 87426; 93005; 93306; 93970; 97162; 97165; 99285; J1650; J1940; Q9967

== ENCOUNTER 2022-11-16 19:38 | Emergency (ER) | payer MEDICAID ==
[~2022-11-16] VITALS: Ht 175.3 cm; Wt 72.6 kg
[~2022-11-16 19:38] MED LIST changes: +ASPI-1406 MT; -FURO20TA4 PO; -LOSA50TA3 PO; -RIVA20TA PO
[2022-11-16] MEDS ORDERED: IBUPROFEN 600MG TABLET PO STA (22:15)
[2022-11-16 22:44] VITALS: BP 144/89
[2022-11-16 23:03] LABS: BASOPHILS % 0.4 % (0.0-2.0); EOSINOPHILS % 0.1 % (0.0-5.0); LYMPHOCYTES % 7.5 % (20.0-50.0); MEAN CORPUSCULAR HEMOGLOBIN 28.6 pg (28.0-32.0); MEAN CORPUSCULAR VOLUME 86.2 fL (80.0-94.0); MEAN PLATELET VOLUME 6.9 fl (7.4-10.4); MONOCYTES % 5.5 % (2.0-8.0); NEUTROPHILS % 86.5 % (40.0-76.0); PLATELET 242 x1000/uL (130-400); RED BLOOD CELL COUNT 4.52 mill/uL (4.7-6.1); RED CELL DISTRIBUTION WIDTH 15.5 % (11.6-14.6)
[2022-11-16 23:09] LABS: INR 1.5; PROTHROMBIN TIME 15.2 sec (9.6-11.0)
[2022-11-16 23:15] LABS: CHLORIDE 97 mEq/L (98-107)
[2022-11-16] MEDS ORDERED: DIPHENHYDRAMINE 50MG/ML VIAL IV ONE (23:30)
[2022-11-17] MEDS ORDERED: VANCOMYCIN 1G PREMIX 200 ML IV SCH (00:45)
[2022-11-17] MEDS ORDERED: IOHEXOL-300 100 ML BOTTLE ONE (01:46)
[2022-11-17] MEDS ORDERED: SULF1TAB48 MT (02:49)
[2022-11-17] MEDS ORDERED: AMOX1TAB16 MT (02:49)
== END 2022-11-17 07:10 | disposition home or self-care (01) ==
LOC: ER 20:40
DX: L03.213 Periorbital cellulitis (principal); I50.9 Heart failure, unspecified
CPT/HCPCS: 36415; 70487; 80053; 85025; 85610; 85651; 96365; 96366; 96375; 99285; J1200; J3370; Q9967

== ENCOUNTER 2024-03-29 21:18 | Inpatient (IN) | payer MEDICAID ==
[~2024-03-29] VITALS: Ht 175.3 cm; Wt 70.3 kg
[~2024-03-29 21:18] MED LIST changes: +AMOX1TAB16 MT; +SULF1TAB48 MT
[2024-03-29 21:59] LABS: CLARITY URINE CLEAR (CLEAR); COLOR URINE YELLOW (YELLOW); GLUCOSE URINE NEGATIVE (NEGATIVE); KETONES URINE NEGATIVE (NEGATIVE); LEUKOCYTE ESTERASE URINE NEGATIVE (NEGATIVE); NITRITE URINE NEGATIVE (NEGATIVE); OCCULT BLOOD URINE NEGATIVE (NEGATIVE); PH URINE 5.5 (4.5-8.0); PROTEIN URINE 1+ (NEGATIVE); SPECIFIC GRAVITY URINE 1.016 (1.005-1.030)
[2024-03-29 22:10] LABS: BACTERIA URINE NONE SEEN; RBC URINE 0-2 /hpf (0-2); SQUAMOUS EPITHELIAL CELL URINE RARE /lpf (RARE/1+); WBC URINE 0-2 /hpf (0-2)
[2024-03-29 22:44] LABS: BASOPHILS % 0.9 % (0.0-2.0); HEMATOCRIT. 44.5 % (42.0-52.0); HEMOGLOBIN. 15.2 g/dL (14.0-18.0); LYMPHOCYTES % 20.1 % (20.0-50.0); MEAN CORPUSCULAR HEMOGLOBIN 31.7 pg (28.0-32.0); MEAN CORPUSCULAR HGB CONC 34.1 g/dL (31.0-37.0); MEAN CORPUSCULAR VOLUME 92.8 fL (80.0-94.0); MEAN PLATELET VOLUME 7.4 fl (7.4-10.4); MONOCYTES % 8.7 % (2.0-8.0); NEUTROPHILS % 69.3 % (40.0-76.0); PLATELET 195 x1000/uL (130-400); RED BLOOD CELL COUNT 4.79 mill/uL (4.7-6.1); RED CELL DISTRIBUTION WIDTH 13.7 % (11.6-14.6); WHITE BLOOD COUNT 7.2 x1000/uL (4.5-11.0)
[2024-03-29 22:52] LABS: CHLORIDE 106 mEq/L (98-107); POTASSIUM 4.3 mEq/L (3.5-5.1); SODIUM 137 mEq/L (136-145)
[2024-03-29 22:53] LABS: CALCIUM 9.4 mg/dL (8.7-10.4); CARBON DIOXIDE 27 mEq/L (21-32)
[2024-03-29 22:58] LABS: CREATININE 1.1 mg/dL (0.6-1.3); GLUCOSE 92 mg/dL (70-105); UREA NITROGEN BLOOD 13 mg/dL (9-23)
[2024-03-29 23:06] LABS: TROPONIN I HIGH SENSITIVITY 63 ng/L (3.0-53)
[2024-03-30] MEDS: ASPIRIN 325MG EC TABLET PO ONE (00:56)
[2024-03-30 01:11] LABS: TROPONIN I HIGH SENSITIVITY 56 ng/L (3.0-53)
[2024-03-30] MEDS: HYDRALAZINE 20MG/ML VIAL IV ONE (01:56)
[2024-03-30 04:58] VITALS: BP 139/100; PULSE 100; RESP 16; TEMP 98.2
[2024-03-30 08:00] VITALS: BP 129/65; PULSE 113; RESP 15; TEMP 98.5
[2024-03-30] MEDS ORDERED: DEXTROSE 50% WATER 50ML SYRINGE IV PRN (10:00)
[2024-03-30] MEDS ORDERED: IPRATROPIUM/ALBUTEROL 0.5-3(2.5)MG/3ML NEB NEB PRN (10:00)
[2024-03-30] MEDS ORDERED: DIPHENHYDRAMINE 50MG/ML VIAL IV PRN (10:00)
[2024-03-30] MEDS ORDERED: NA PHOS,M-B/NA PHOS,DI-BA ENEMA 118ML PR PRN (10:00)
[2024-03-30] MEDS ORDERED: HYDRALAZINE 20MG/ML VIAL IV PRN (10:00)
[2024-03-30] MEDS ORDERED: GUAIFENESIN 200MG/10ML SUGAR FREE UDC PO PRN (10:00)
[2024-03-30] MEDS ORDERED: MAGNESIUM/ALUMINUM HYDROXIDE/SIMETHICONE 30ML UDC PO PRN (10:00)
[2024-03-30] MEDS ORDERED: ACETAMINOPHEN 325MG TABLET PO PRN (10:00)
[2024-03-30] MEDS ORDERED: CLONIDINE 0.1MG TABLET PO PRN (10:00)
[2024-03-30] MEDS ORDERED: DOCUSATE SODIUM 100MG CAPSULE PO PRN (10:00)
[2024-03-30] MEDS ORDERED: ONDANSETRON HCL 4MG/2ML INJ IV PRN (10:00)
[2024-03-30] MEDS: BLOOD SUGAR DIAGNOSTIC STRIP TEST SCH (11:50)
[2024-03-30 12:00] VITALS: BP 131/102; PULSE 110; RESP 17; TEMP 98.4
[2024-03-30] MEDS ORDERED: INSULIN LISPRO 100 UNITS/ML SUBCUT SCH (12:20)
[2024-03-30] MEDS: FUROSEMIDE 40MG/4ML VIAL IVP SCH (13:27)
[2024-03-30] MEDS: ENOXAPARIN 40MG/0.4ML SYR SUBCUT SCH (13:27)
[2024-03-30] MEDS: SODIUM CHLORIDE 0.9% INJ 3ML FLUSH IVF SCH (14:00)
[2024-03-30 16:00] VITALS: BP 142/107; PULSE 110; RESP 16; TEMP 97.7
[2024-03-30 16:01] LABS: *AMPHETAMINES SCREEN URINE PRESUMPTIVE POSITIVE (NEGATIVE); *BARBITURATES SCREEN URINE NEGATIVE (NEGATIVE); *BENZODIAZEPINES SCREEN URINE NEGATIVE (NEGATIVE); *COCAINE SCREEN URINE NEGATIVE (NEGATIVE); CANNABINOID URINE SCREEN NEGATIVE (NEGATIVE); ECSTASY MDMA SCREEN URINE NEGATIVE (NEGATIVE); METHADONE URINE SCREEN NEGATIVE (NEGATIVE); OPIATES URINE SCREEN NEGATIVE (NEGATIVE); PHENCYCLIDINE URINE SCREEN NEGATIVE (NEGATIVE)
[2024-03-30] MEDS: LOSARTAN 25 MG TABLET PO SCH (16:20)
[2024-03-30 17:00] LABS: CREATINE KINASE MB FRACTION 3.4 ng/mL (0.5-3.6)
[2024-03-30 17:04] LABS: T4 FREE 1.13 ng/dL (0.89-1.76); THYROID STIMULATING HORMONE 1.43 uIU/mL (0.55-4.78)
[2024-03-31] VITALS: BP 119/83; PULSE 84; RESP 18; TEMP 98.6
[2024-03-31 00:25] LABS: CREATINE KINASE MB FRACTION 2.6 ng/mL (0.5-3.6)
[2024-03-31 04:00] VITALS: BP 119/75; PULSE 85; RESP 18; TEMP 98.1
[2024-03-31 06:24] LABS: BASOPHILS % 0.7 % (0.0-2.0); EOSINOPHILS % 1.3 % (0.0-5.0); HEMATOCRIT. 48.1 % (42.0-52.0); HEMOGLOBIN. 16.6 g/dL (14.0-18.0); LYMPHOCYTES % 18.2 % (20.0-50.0); MEAN CORPUSCULAR HEMOGLOBIN 31.5 pg (28.0-32.0); MEAN CORPUSCULAR HGB CONC 34.5 g/dL (31.0-37.0); MEAN CORPUSCULAR VOLUME 91.2 fL (80.0-94.0); MEAN PLATELET VOLUME 7.8 fl (7.4-10.4); MONOCYTES % 10.2 % (2.0-8.0); NEUTROPHILS % 69.6 % (40.0-76.0); PLATELET 205 x1000/uL (130-400); RED BLOOD CELL COUNT 5.28 mill/uL (4.7-6.1); RED CELL DISTRIBUTION WIDTH 13.6 % (11.6-14.6); WHITE BLOOD COUNT 6.7 x1000/uL (4.5-11.0)
[2024-03-31 06:33] LABS: CARBON DIOXIDE 26 mEq/L (21-32); CHLORIDE 103 mEq/L (98-107); SODIUM 137 mEq/L (136-145)
[2024-03-31 06:37] LABS: CREATINE KINASE MB FRACTION 2.3 ng/mL (0.5-3.6)
[2024-03-31 06:38] LABS: TROPONIN I HIGH SENSITIVITY 39 ng/L (3.0-53)
[2024-03-31 06:39] LABS: GLUCOSE 91 mg/dL (70-105); TRIGLYCERIDE 64 mg/dL (0-150); UREA NITROGEN BLOOD 15 mg/dL (9-23)
[2024-03-31 06:40] LABS: ALANINE AMINOTRANSFERASE 21 IU/L (10-49); ALBUMIN 3.7 g/dL (3.2-4.8); ASPARTATE AMINOTRANSFERASE 24 IU/L (<34); LDL CHOLESTEROL 69 mg/dL (5-100)
[2024-03-31 06:41] LABS: BILIRUBIN TOTAL 1.1 mg/dL (0.1-1.0); CHOLESTEROL 119 mg/dL (<200); CREATINE KINASE 82 IU/L (46-171); HDL CHOLESTEROL 42 mg/dL (>55); PROTEIN TOTAL 6.5 g/dL (6.0-8.3); T4 FREE 1.06 ng/dL (0.89-1.76)
[2024-03-31 08:00] VITALS: BP 147/126; PULSE 115; RESP 23; TEMP 98
[2024-03-31 12:00] VITALS: BP 129/98; PULSE 97; RESP 10; TEMP 98.2
[2024-03-31 16:00] VITALS: BP 137/104; PULSE 100; RESP 16; TEMP 98.1
[2024-03-31 20:00] VITALS: BP 119/60; PULSE 78; RESP 20; TEMP 98.3
[2024-04-01] VITALS: BP 110/65; PULSE 17; TEMP 97.6
[2024-04-01 04:00] VITALS: BP 120/65; PULSE 87; RESP 17; TEMP 97.5
[2024-04-01 05:53] LABS: CARBON DIOXIDE 26 mEq/L (21-32); CHLORIDE 103 mEq/L (98-107); SODIUM 136 mEq/L (136-145)
[2024-04-01 05:55] LABS: CALCIUM 9.2 mg/dL (8.7-10.4)
[2024-04-01 05:59] LABS: CREATININE 0.8 mg/dL (0.6-1.3); GLUCOSE 88 mg/dL (70-105); UREA NITROGEN BLOOD 15 mg/dL (9-23)
[2024-04-01 08:00] VITALS: BP 144/109; PULSE 94; RESP 17; TEMP 98.1
[2024-04-01] MEDS: ASPIRIN 81MG TABLET PO SCH (08:45)
[2024-04-01 12:00] VITALS: BP 124/107; PULSE 98; RESP 9; TEMP 98.2
[2024-04-01 16:00] VITALS: BP 133/108; PULSE 93; RESP 16; TEMP 97.9
[2024-04-01 20:10] VITALS: BP 140/87; PULSE 103; RESP 15; TEMP 97.3
[2024-04-02] VITALS: BP 133/92; PULSE 102; RESP 17; TEMP 97.9
[2024-04-02 04:15] VITALS: BP 127/96; PULSE 96; RESP 12; TEMP 96.9
[2024-04-02 08:00] VITALS: BP 127/96; PULSE 98; RESP 15; TEMP 98.2
[2024-04-02] MEDS: FUROSEMIDE 40MG TABLET PO SCH (10:45)
[2024-04-02 12:00] VITALS: BP 126/78; PULSE 97; RESP 17; TEMP 98
[2024-04-02 16:00] VITALS: BP 121/76; PULSE 99; RESP 16; TEMP 98.4
[2024-04-02 20:00] VITALS: BP 109/92; PULSE 92; RESP 15; TEMP 97.2
[2024-04-03] VITALS: BP 113/8; PULSE 107; RESP 15; TEMP 97.3
[2024-04-03 04:00] VITALS: BP 123/86; PULSE 85; RESP 13; TEMP 97.3
[2024-04-03 07:30] VITALS: PULSE 88; RESP 20
[2024-04-03 09:30] VITALS: PULSE 93; RESP 20
[2024-04-03 10:51] VITALS: BP 123/86; PULSE 93; TEMP 97.3; O2SAT 99
[2024-04-03 14:29] VITALS: BP 123/86; PULSE 93; TEMP 97.3; O2SAT 99
== END 2024-04-03 15:45 | disposition home or self-care (01) | DRG 194 ==
LOC: ER 21:18 → 3WST 03-30 01:08
PROVIDERS: ADMIT Internal Medicine; ATTEND Internal Medicine
DX: I11.0 Hypertensive heart disease with heart failure (principal); F12.90 Cannabis use, unspecified, uncomplicated; I50.23 Acute on chronic systolic (congestive) heart failure; I25.5 Ischemic cardiomyopathy; F15.19 Other stimulant abuse with unspecified stimulant-induced disorder; Z87.891 Personal history of nicotine dependence; Z59.00 Homelessness unspecified; Z91.199 Patient's noncompliance with other medical treatment and regimen due to unspecified reason
CPT/HCPCS: 36415; 71045; 80048; 80053; 80061; 80305; 81003; 82550; 82553; 83036; 83880; 84439; 84443; 84484; 85025; 85379; 93005; 93306; 93970; 99285; J0360; J1650; J1940